=== PATIENT | female | born 1955 | race Caucasian/White ===

== ENCOUNTER 2020-11-03 11:51 | Outpatient (CLI) | payer MEDICARE ==
[2020-11-04 01:13] LABS: SARS-CoV-2 PCR by NAA Not Detected (NotDetected)
== END 2020-11-03 11:52 | disposition home or self-care (01) ==
LOC: CSHLAB 11:51
PROVIDERS: ATTEND Nurse Practitioner Family
DX: Z20.822 Contact with and (suspected) exposure to COVID-19 (principal); R06.02 Shortness of breath
CPT/HCPCS: 87635; U0003; U0005

== ENCOUNTER 2020-11-08 14:33 | Outpatient (CLI) | payer MEDICARE | END 2020-11-08 14:34 | disposition home or self-care (01) | LOC: CSHCP 14:33 | PROVIDERS: ATTEND Nurse Practitioner Family | DX: R06.02 Shortness of breath (principal) | CPT/HCPCS: 94060; 94726; 94729; 94760 ==